=== PATIENT | male | born 1950 | race African-American/Black ===

== ENCOUNTER 2017-08-30 21:28 | Emergency (ER) | payer OTHER ==
[~2017-08-30] VITALS: Ht 167.6 cm; Wt 72.6 kg
[~2017-08-30 21:28] MED LIST: ASA-EC81 MG PO; DIOVAN320 MG; DIOVAN40 MG; HYZAAR 50-12.1 UDTAB; IMODIUM A-D2 MG PO; ISOSORBIDE MONO30 MG PO; LIPITOR40 MG PO; LOTREL 10-20 MG1 CAP; LOTREL 10/20 CA1 CAP; NITROTAB0.3 MG SL; TUSSI PRES-B L120 M1 PO; ZITHROMAX TRI-500 MG PO; ZOFRAN ODT8 MG/UDTAB PO
== END 2017-08-31 09:42 | disposition home or self-care (01) ==
LOC: ER 21:28 → CPU-OBS 21:44 → ER 21:44
DX: R07.89 Other chest pain (principal)

== ENCOUNTER 2018-11-11 08:50 | Emergency (ER) | payer OTHER ==
[~2018-11-11] VITALS: Ht 162.6 cm; Wt 73.9 kg
[2018-11-11] MEDS ORDERED: ASPIR 8181 MG PO (09:21)
[2018-11-11] MEDS ORDERED: CARDURA1 MG PO (09:22)
== END 2018-11-11 13:02 | disposition home or self-care (01) ==
LOC: ER 08:50
DX: B34.9 Viral infection, unspecified (principal); J11.1 Influenza due to unidentified influenza virus with other respiratory manifestations

== ENCOUNTER 2019-11-07 09:56 | Emergency (ER) | payer OTHER ==
[~2019-11-07] VITALS: Ht 162.6 cm; Wt 74.8 kg
[~2019-11-07 09:56] MED LIST changes: +ASPIR 8181 MG PO; +CARDURA1 MG PO
[2019-11-07] MEDS ORDERED: BENICAR20 MG (10:35)
[2019-11-07] MEDS ORDERED: ASPIR 8181 MG (10:36)
[2019-11-07] MEDS ORDERED: MUCINEX DM ER1 EAC1 PO (15:46)
[2019-11-07] MEDS ORDERED: HYDROCODONE-CH115 ML PO (15:46)
== END 2019-11-07 16:07 ==
LOC: ER 09:56
DX: J06.9 Acute upper respiratory infection, unspecified (principal)

== ENCOUNTER 2020-02-03 10:41 | Emergency (ER) | payer OTHER ==
[~2020-02-03] VITALS: Ht 162.6 cm; Wt 72.6 kg
[~2020-02-03 10:41] MED LIST changes: +ASPIR 8181 MG; +BENICAR20 MG; +HYDROCODONE-CH115 ML PO; +MUCINEX DM ER1 EAC1 PO
== END 2020-02-03 13:52 | disposition home or self-care (01) ==
LOC: ER 10:41
DX: L02.213 Cutaneous abscess of chest wall (principal)

== ENCOUNTER 2020-05-28 11:00 | Emergency (ER) | payer OTHER ==
[~2020-05-28] VITALS: Ht 162.6 cm; Wt 74.8 kg
[2020-05-28] MEDS ORDERED: DOXAZOSIN MESYLA2 MG PO (11:11)
[2020-05-28] MEDS ORDERED: IRBESARTAN-HCT1 EACH PO (11:11)
[2020-05-28] MEDS ORDERED: CELEBREX200MG PO (14:03)
== END 2020-05-28 14:17 | disposition home or self-care (01) ==
LOC: ER 11:00
DX: M25.552 Pain in left hip (principal)

== ENCOUNTER 2021-03-06 13:48 | Emergency (ER) | payer OTHER ==
[~2021-03-06] VITALS: Ht 162.6 cm; Wt 77.1 kg
[~2021-03-06 13:48] MED LIST changes: +CELEBREX200MG PO; +DOXAZOSIN MESYLA2 MG PO; +IRBESARTAN-HCT1 EACH PO
[2021-03-06] MEDS ORDERED: CARDURA XL8 MG (14:00)
[2021-03-06] MEDS ORDERED: DULCOLAX STOOL100 M1 PO (17:02)
[2021-03-06] MEDS ORDERED: MIRALAX510 GM PO (17:02)
== END 2021-03-06 17:26 | disposition home or self-care (01) ==
LOC: ER 13:48
DX: K59.09 Other constipation (principal); R10.12 Left upper quadrant pain

== ENCOUNTER 2022-02-08 07:41 | Emergency (ER) | payer OTHER ==
[~2022-02-08] VITALS: Ht 162.6 cm; Wt 71.7 kg
[~2022-02-08 07:41] MED LIST changes: +CARDURA XL8 MG; +DOLOGEN 325-11 EACH PO; +DULCOLAX STOOL100 M1 PO; +MIRALAX510 GM PO
== END 2022-02-08 11:18 | disposition home or self-care (01) ==
LOC: ER 07:41
DX: M25.562 Pain in left knee (principal); Z91.013 Allergy to seafood; M17.12 Unilateral primary osteoarthritis, left knee

== ENCOUNTER 2022-10-21 16:27 | Inpatient (IN) | payer OTHER ==
[~2022-10-21] VITALS: Ht 162.6 cm; Wt 72.6 kg
--- NOTE | 2022-10-21 17:17 | NUR ---
SE RECIBE PTE ALERTA Y ORIENTADO X3 PTE REFEIRE DOLOR EN EL HOMBRO Y SE CORRE PARA LA EL SUZI HACE MAS DE 2 SEMANAS, SE ALBERT VITALES Y SE [place] EN [place] DE [place].
--- NOTE | 2022-10-21 21:09 | NUR ---
PTE ALERTA,ESTABLE Y ORIENTADO.SE EDUCA SOBRE EL TRATAMIENTO QUE RECIBIRA EN EL HOSPITAL Y CLYDE REFIERE ENTENDER.SE LE ALBERT MUESTRAS DE [place] Y SE LE ADMINISTRA MEDICAMENTOS FERNANDO ORDEN MEDICA
== END 2022-10-25 10:42 | disposition designated cancer center or children's hospital (05) | DRG 282 ==
LOC: ER 16:27 → MEDJ 21:36 → SEC-K 10-22 10:32 → O/R 10-22 14:57 → SEC-K 10-22 14:58 → MEDJ 10-22 15:59
PROVIDERS: ADMIT Internal Medicine; ATTEND Internal Medicine
PROC: B246ZZZ Ultrasonography of Right and Left Heart (ICD-10-PCS; principal; 2022-10-21)
PROC: 4A12X4Z Monitoring of Cardiac Electrical Activity, External Approach (ICD-10-PCS; 2022-10-22)
DX: I21.4 Non-ST elevation (NSTEMI) myocardial infarction (principal); I11.0 Hypertensive heart disease with heart failure

== ENCOUNTER 2023-04-19 15:01 | Emergency (ER) | payer OTHER ==
[~2023-04-19] VITALS: Ht 160 cm; Wt 77.1 kg
== END 2023-04-19 22:56 | disposition home or self-care (01) ==
LOC: ER 15:01
DX: K29.70 Gastritis, unspecified, without bleeding (principal)

== ENCOUNTER → 2023-06-10 | Emergency (ER) | payer OTHER ==
[~2023-06-10] VITALS: Ht 162.6 cm; Wt 70.3 kg
== END | disposition left against medical advice (07) ==
LOC: ER 11:19
DX: Z53.21 Procedure and treatment not carried out due to patient leaving prior to being seen by health care provider (principal)

== ENCOUNTER 2024-10-21 09:37 | Inpatient (IN) | payer OTHER ==
[~2024-10-21] VITALS: Ht 162.6 cm; Wt 72.6 kg
--- NOTE | 2024-10-21 10:15 | NUR ---
SE LLAMA A PTE Y NO CONTESTA.
[2024-10-21] MEDS ORDERED: NORVASC10 MG PO (10:24)
--- NOTE | 2024-10-21 10:27 | NUR ---
PTE ALERTA Y ORIENTADA X3, SE ALBERT S/V. PTE REFIERE QUE DESDE LA MANANA DE HOY PRESENTA PRESION ALTERIAL ANDRES. AL MOMENTO DE TRIAGE BP 157/68 Y REFIERE NO TENER DOLOR DE PECHO. PTE INDICA TENER DOLOR DE IAN, SE UBICA EN FT
--- NOTE | 2024-10-21 11:30 | NUR ---
SE ORIENTA A PACIENTE SOBRE TX MEDICO QUIEN INDICA ENTENDER Y ACEPTAR. SE COLECTAN MUESTRAS DE LABORATORIO BAJO MEDIDAS ASEPTICAS, PACIENTE CON XRAY Y CT SCAN PENDIENTE.
[2024-10-21 11:49] LABS: HEMATOCRIT 44.7 % (39.0-48.0); HEMOGLOBIN 14.6 g/dL (13-16.00); MEAN CORPUSCULAR HEMOGLOBIN 26.8 pg (27.00-32.0); MEAN CORPUSCULAR HGB CONC 32.7 g/dl (32.0-36.0); PLATELET COUNT 212 K/uL (150-450); RED BLOOD COUNT 5.45 M/uL (4.00-6.00); RED CELL DISTRIBUTION WIDTH 14.5 % (11.5-14.5)
[2024-10-21] MEDS ORDERED: ASPIRIN 325 MG TABLET PO ONE ×2 (13:00→18:15)
[2024-10-21] MEDS ORDERED: BUTALB/ACETAMINOPHEN/CAFFEINE 1 TAB TABLET PO ONE ×2 (13:11→13:15)
[2024-10-21] MEDS ORDERED: NITROGLYCERIN IN 5 % DEXTROSE 250 ML IV SCH (13:12)
[2024-10-21] MEDS ORDERED: NITROGLYCERIN IN 5 % DEXTROSE 50 MG/250 ML BOTTLE IV ONE (13:35)
--- NOTE | 2024-10-21 13:46 | NUR ---
PACIENTE ADMITIDO A UNIDAD DE CHEST PAIN, SE CONECTA A PACIENTE A MONITOR CARDIACO Y OXIMETRIA DE PULSO CONTINUA, SE REALIZA VENOPUNCION A PACIENTE EN BRAZO MAHAD ANGIO #18 Y BRAZO BEN ANGIO #18 LAS CUALES SE ENCUENTRAN PATENTES LIBRES DE EDEMA Y ERITEMA. SE ALBERT MUESTRAS DE LABORATORIO BAJO MEDIDAS ASEPTICAS Y SE ADMINISTRAN MEDICAMENTOS FERNANDO ORDEN MEDICA. SE COMIENZA DRIP DE TRIDIL A 3ML/HR, SE MANTIENE A PACIENTE EN OBSERVACION POR CAMBIOS A GREGORY CONDICION.
--- NOTE | 2024-10-21 13:52 | NUR ---
PACIENTE PENDIENTE A ENTREGAR U/A Y TROPONINAS X3 COMENZANDO A LAS 1330
[2024-10-21 13:59] LABS: INR 1.02; PARTIAL THROMBOPLASTIN TIME 25.9 SECONDS (22.0-34.0); PROTHROMBIN TIME 11.1 SECONDS (9.0-11.5)
[2024-10-21 14:09] LABS: BILIRUBIN TOTAL 0.4 mg/dL (0.3-1.2); CALCIUM 9.4 mg/dL (8.5-10.1); CREATININE SERUM 0.81 mg/dL (0.70-1.30); GFR 92.65; GLOBULINA 4.1 G/DL (2.4-3.5); POTASSIUM 3.86 mEq/L (3.5-5.1); TOTAL PROTEIN 8.1 gm/dL (6.4-8.2)
--- NOTE | 2024-10-21 15:30 | NUR ---
SE RECIBE PTE ALERTA Y ORIENTADO X3 EN CAMA BAJA CON BARANDAS LEEVADAS Y CABEZAL A 45 AMISH. PTE CONECTADO A MONITOR CARDIACO Y SATUROMETRO. CANALIZADO EN BRAZO DERECHO Y BRAZO BEN CON ANGIO #18 Y #18 PATENTE HAYLEY DE EDEMA Y ENROJECIMIENTO. RECIBIENDO TRIDIL 50MG/250ML BAJANDO A 3MLS/HR. PEDIENTE CONSULTA CON DR. ROSS Y DR. SORTO. PENDIENTE U/A, PTE NO A ORINADO.
[2024-10-21] MEDS ORDERED: 0.9 % SODIUM CHLORIDE 1,000 ML IV SCH (16:15)
--- NOTE | 2024-10-21 16:20 | NUR ---
PTE PRESENTA PULSO EN 45 SE REALIZA EKG Y SE PRESENTA A JAIMIE. FRANCES LA CUAL EVAULYA Y FIRMA EL MISMO E INDICA D/C TRIDIL.
[2024-10-21] MEDS ORDERED: CLOPIDOGREL BISULFATE 75 MG TABLET PO SCH (18:08)
[2024-10-21] MEDS ORDERED: FUROsemide 20 MG/2 ML VIAL IV SCH (18:10)
[2024-10-21] MEDS ORDERED: ACETAMINOPHEN 500 MG GEL..CAP PO PRN (18:15)
[2024-10-21] MEDS ORDERED: ASPIRIN 325 MG TABLET.EC PO ONE (20:10)
[2024-10-21] MEDS ORDERED: FUROsemide 20 MG/2 ML VIAL ONE (20:11)
[2024-10-21] MEDS ORDERED: CLOPIDOGREL BISULFATE 75 MG TABLET PO ONE (20:11)
[2024-10-21 20:48] VITALS: BP 147/67; O2SAT 95
[2024-10-21 21:35] LABS: URINE APPEARANCE Clear; URINE BILIRRUBIN Negative (NEGATIVE); URINE BLOOD Negative; URINE COLOR Yellow; URINE GLUCOSE Negative (NEGATIVE); URINE KETONE Negative (NEGATIVE); URINE LEUKOCYTE Negative; URINE NITRATE Negative; URINE PROTEIN Negative (NEGATIVE); URINE UROBILINOGEN 0.2 E.U./dl
[2024-10-21 21:37] VITALS: BP 123/47; O2SAT 98
[2024-10-21 21:39] LABS: URINE BACTERIA 6.1 uL (0.0-1933)
[2024-10-21 21:42] LABS: URINE EPITHELIAL CELLS 1.2 uL (0.0-38.8); URINE RBC 1.4 uL (0.0-20.8); URINE WBC 1.1 uL (0.0-23.2)
[2024-10-22] VITALS (13 sets, daily range): BP systolic 110–156; BP diastolic 47–77; O2SAT 97–100
[2024-10-22] MEDS ORDERED: NITROGLYCERIN IN 5 % DEXTROSE 250 ML IV SCH (09:00)
[2024-10-22] MEDS ORDERED: ENOXAPARIN SODIUM 40 MG/0.4 ML SYRINGE SUBCUTANEO SCH (09:00)
[2024-10-22] MEDS ORDERED: ATORVASTATIN CALCIUM 40 MG TABLET PO SCH (09:00)
[2024-10-22] MEDS ORDERED: FAMOTIDINE/PF 20 MG in 0.9 % SODIUM CHLORIDE 8 ML IV PUSH SCH (09:00)
[2024-10-22 13:28] LABS: CKMB 4.8 NG/ML (0.5-3.6)
[2024-10-23] VITALS: BP 151/61; O2SAT 99
[2024-10-23 02:52] VITALS: BP 146/79; O2SAT 100
[2024-10-23 04:00] VITALS: BP 156/68; O2SAT 100
[2024-10-23 08:05] VITALS: BP 152/65; O2SAT 100
[2024-10-23 08:17] LABS: ALBUMIN 3.6 gm/dL (3.4-5.0); BILIRUBIN TOTAL 0.72 mg/dL (0.3-1.2); CALCIUM 8.9 mg/dL (8.5-10.1); CREATININE SERUM 0.72 mg/dL (0.70-1.30); GFR 106.14; GLOBULINA 3.3 G/DL (2.4-3.5); MAGNESIUM 2.2 mg/dL (1.8-2.4); POTASSIUM 4.03 mEq/L (3.5-5.1); TOTAL PROTEIN 6.9 gm/dL (6.4-8.2)
[2024-10-23 08:24] LABS: HEMATOCRIT 41.8 % (39.0-48.0); HEMOGLOBIN 14.5 g/dL (13-16.00); MEAN CORPUSCULAR HEMOGLOBIN 27.4 pg (27.00-32.0); MEAN CORPUSCULAR HGB CONC 34.7 g/dl (32.0-36.0); PLATELET COUNT 191 K/uL (150-450); RED BLOOD COUNT 5.29 M/uL (4.00-6.00); RED CELL DISTRIBUTION WIDTH 14.6 % (11.5-14.5)
[2024-10-23] MEDS ORDERED: AMLODIPINE BESYLATE 5 MG TABLET PO SCH (09:00)
[2024-10-23] MEDS ORDERED: LOSARTAN POTASS50 MG PO (13:27)
== END 2024-10-23 14:00 | disposition home or self-care (01) | DRG 281 ==
LOC: ER 09:40 → ICU-2 19:12 → ICU 10-23 02:27
PROVIDERS: General Practice; ADMIT Internal Medicine; ATTEND Internal Medicine
PROC: BW28ZZZ Computerized Tomography (CT Scan) of Head (ICD-10-PCS; principal; 2024-10-21)
PROC: B24BZZZ Ultrasonography of Heart with Aorta (ICD-10-PCS; 2024-10-21)
DX: I21.4 Non-ST elevation (NSTEMI) myocardial infarction (principal); I16.9 Hypertensive crisis, unspecified; E78.5 Hyperlipidemia, unspecified; I11.0 Hypertensive heart disease with heart failure; I50.9 Heart failure, unspecified

== ENCOUNTER → 2025-01-16 | Emergency (ER) | payer OTHER ==
[~2025-01-16] VITALS: Ht 162.6 cm; Wt 72.6 kg
[~2025-01-16] MED LIST changes: +ACETAMINOPHEN 500 MG GEL..CAP PO ONE; +GUAIFENESIN 200 MG/10 ML BLIST.PACK PO ONE; +IPRATROPIUM BROMIDE 0.5 MG/2.5 ML AMPUL.NEB IH SCH; +LOSARTAN POTASS50 MG PO; +NORVASC10 MG PO
[2025-01-16 09:27] LABS: BASO % 0.4 % (0.1-1.2); EOS # 0.08 (0.04-0.54); EOS % 1.7 % (0.7-7.0); HEMATOCRIT 43.3 % (40.1-51.0); HEMOGLOBIN 14.3 g/dL (13.7-17.5); LYMPH # 1.05 (1.18-3.74); LYMPH % 22.3 % (19.3-53.1); MONO # 0.88 (0.24-0.82); NEUT # 2.67 (1.56-6.13); NEUT % 56.7 % (34.0-71.1); PLATELET COUNT 171 K/uL (163-369); RED BLOOD COUNT 5.29 M/uL (4.63-6.08); RED CELL DISTRIBUTION WIDTH 14.4 % (11.6-14.4)
[2025-01-16 09:29] LABS: MONO % 18.7 % (4.7-12.5)
[2025-01-16 09:43] LABS: COVID-19 AG NEGATIVE (NEGATIVE); INFLUENZA A AG NEGATIVE (NEGATIVE)
== END | disposition home or self-care (01) ==
LOC: ER 07:37
PROVIDERS: General Practice
DX: B34.9 Viral infection, unspecified (principal); J10.1 Influenza due to other identified influenza virus with other respiratory manifestations; R05.9 Cough, unspecified; Z20.822 Contact with and (suspected) exposure to COVID-19; I10 Essential (primary) hypertension

== ENCOUNTER 2025-06-28 09:45 | Inpatient (IN) | payer OTHER ==
[~2025-06-28] VITALS: Ht 167.6 cm; Wt 72.6 kg
[~2025-06-28 09:45] MED LIST changes: -ACETAMINOPHEN 500 MG GEL..CAP PO ONE; -GUAIFENESIN 200 MG/10 ML BLIST.PACK PO ONE; -IPRATROPIUM BROMIDE 0.5 MG/2.5 ML AMPUL.NEB IH SCH
[2025-06-28] MEDS ORDERED: CARDURA8 MG PO (10:23)
--- NOTE | 2025-06-28 10:27 | NUR ---
PTE LLEGA POR HBP Y DOLOR DE PECHO QUE AL MOMENTO REFIERE QUE NO TIENE . SE LE ANN S/V Y PRECION MANUAL , SE LE REALIZA EKG Y SE LE PRESENTA A EL DR SMITH BERRIOS LA CUAL ORDENA A PASARLO A EL DEPT DE CRITICO CON MONITOR PARA OBSERVARLO.
[2025-06-28] MEDS ORDERED: ENOXAPARIN SODIUM 60 MG/0.6 ML SYRINGE SUBCUTANEO ONE (10:45)
[2025-06-28] MEDS ORDERED: TICAGRELOR 90 MG TABLET PO ONE (10:45)
[2025-06-28] MEDS ORDERED: ASPIRIN 325 MG TABLET.EC PO ONE (10:45)
[2025-06-28] MEDS ORDERED: NITROGLYCERIN 0.4 MG TAB.SUBL SL ONE (10:45)
[2025-06-28] MEDS ORDERED: ATORVASTATIN CALCIUM 40 MG TABLET PO ONE (10:45)
[2025-06-28] MEDS ORDERED: 0.9 % SODIUM CHLORIDE 1,000 ML IV SCH (10:45)
[2025-06-28 11:24] LABS: BASO % 0.6 % (0.1-1.2); EOS # 0.07 (0.04-0.54); EOS % 1.5 % (0.7-7.0); LYMPH # 1.11 (1.18-3.74); LYMPH % 24.0 % (19.3-53.1); MEAN PLATELET VOLUME 9.10 fl (9.4-12.4); MONO # 0.65 (0.24-0.82); NEUT # 2.76 (1.56-6.13); NEUT % 59.7 % (34.0-71.1); RED CELL DISTRIBUTION WIDTH 13.7 % (11.6-14.4)
[2025-06-28 11:25] LABS: MONO % 14.0 % (4.7-12.5)
--- NOTE | 2025-06-28 11:35 | NUR ---
SE RECIBE A PACIENTE ALERTA Y ORIENTADO X3 EN AREA DE CRITICO, SE CONECTA A MONITOR CARDIACO Y OXIMETRIA CONTINUA. SE EDUCA A PACIENTE SOBRE PROCESO DE ANN DE MUESTRAS, CANALIZACION Y ADMINISTRACION DE MEDICAMENTOS, REFIERE ENTENDER. SE EJECUTAN ORDENES BAJO MEDIDAS ASEPTICAS. SE HACE ENTREGA DE ENVASE PARA ANN DE U/A. PACIENTE SE MANTIENE EN CAMA A NIVEL DE PISO JUNTO CON BARRANDAS ELEVADAS, SE OBSERVAN POR CAMBIOS SIGNIFICATIVOS EN CONDICION.
[2025-06-28 11:46] LABS: INR 1.06
[2025-06-28 12:04] LABS: ALT/SGPT 41.0 U/L (12-78); AST/SGOT 28.0 U/L (15-37); BILIRUBIN TOTAL 0.59 mg/dL (0.3-1.2); BUN CREA RATIO 15.0 (7.0-25.0); CREATININE SERUM 0.82 mg/dL (0.70-1.30); GFR 91.1; GLOBULINA 3.4 G/DL (2.4-3.5); GLUCOSE FASTING 128.0 mg/dL (65-100); OSMOLALITY SERUM 281.0 MOSM/KG (275-295)
[2025-06-28] MEDS ORDERED: NITROGLYCERIN IN 5 % DEXTROSE 50 MG/250 ML BOTTLE IV ONE (12:39)
[2025-06-28] MEDS ORDERED: NITROGLYCERIN IN 5 % DEXTROSE 250 ML IV SCH ×2 (12:45→15:30)
[2025-06-28] MEDS ORDERED: ENALAPRILAT DIHYDRATE 1.25 MG/ML VIAL IV PRN (14:00)
[2025-06-28 16:43] LABS: URINE APPEARANCE Clear; URINE BILIRRUBIN Negative (NEGATIVE); URINE BLOOD Negative; URINE COLOR Yellow; URINE GLUCOSE Negative (NEGATIVE); URINE KETONE Negative (NEGATIVE); URINE LEUKOCYTE Negative; URINE NITRATE Negative; URINE PROTEIN Negative (NEGATIVE); URINE UROBILINOGEN 0.2 E.U./dl
[2025-06-28 16:48] LABS: URINE CAST 1.46 uL (0.0-1.40); URINE EPITHELIAL CELLS 1.8 uL (0.0-38.8); URINE RBC 4.9 uL (0.0-20.8)
[2025-06-28 16:52] LABS: URINE BACTERIA 2.3 uL (0.0-1933); URINE WBC 1.6 uL (0.0-23.2)
[2025-06-28 17:04] VITALS: BP 120/62; O2SAT 97
[2025-06-28 19:15] VITALS: BP 128/66; O2SAT 97
[2025-06-28 20:53] VITALS: O2SAT 96
[2025-06-28 23:14] VITALS: BP 130/70; O2SAT 97
[2025-06-29] VITALS (9 sets, daily range): BP systolic 122–148; BP diastolic 66–77; O2SAT 90–97
[2025-06-29] MEDS ORDERED: PANTOPRAZOLE SODIUM 40 MG TABLET.DR PO SCH (07:30)
[2025-06-29] MEDS ORDERED: ENOXAPARIN SODIUM 40 MG/0.4 ML SYRINGE SUBCUTANEO SCH (09:00)
[2025-06-29] MEDS ORDERED: AMLODIPINE BESYLATE 10 MG TABLET PO SCH (09:00)
[2025-06-29] MEDS ORDERED: DOXAZOSIN MESYLATE 8 MG TABLET PO SCH (09:00)
[2025-06-29] MEDS ORDERED: ASPIRIN 81 MG TABLET.EC PO SCH (09:00)
[2025-06-29] MEDS ORDERED: LOSARTAN POTASSIUM 100 MG TABLET PO SCH (09:00)
[2025-06-29] MEDS ORDERED: ATORVASTATIN CALCIUM 20 MG TABLET PO SCH (09:00)
[2025-06-30] VITALS: O2SAT 96
[2025-06-30 02:01] VITALS: BP 148/70; O2SAT 98
[2025-06-30 04:59] VITALS: O2SAT 96
[2025-06-30 08:44] VITALS: BP 165/71; O2SAT 97
[2025-06-30] MEDS ORDERED: HYDROCHLOROTHIAZIDE 12.5 MG CAPSULE PO SCH (09:00)
[2025-06-30 09:04] VITALS: O2SAT 94
[2025-06-30 13:20] VITALS: O2SAT 90
[2025-06-30] MEDS ORDERED: LOSARTAN POTAS100 MG PO (15:41)
[2025-06-30] MEDS ORDERED: DOXAZOSIN MESYLA8 MG PO (15:41)
[2025-06-30] MEDS ORDERED: LIPITOR20 MG PO (15:41)
[2025-06-30] MEDS ORDERED: AMLODIPINE BESY10 MG PO (15:41)
[2025-06-30] MEDS ORDERED: ST. JOSEPH ASPI81 M2 PO (15:42)
[2025-06-30] MEDS ORDERED: HYDROCHLOROTH12.5 MG PO (15:42)
[2025-06-30] MEDS ORDERED: NITROSTAT0.4 MG SL (15:42)
== END 2025-06-30 15:45 | disposition home or self-care (01) | DRG 282 ==
LOC: ER 09:45 → MEDI 14:29 → SEC-K 14:29 → MEDI 16:10
PROVIDERS: General Practice; ADMIT Internal Medicine; ATTEND Internal Medicine
PROC: B246ZZZ Ultrasonography of Right and Left Heart (ICD-10-PCS; principal; 2025-06-28)
PROC: 4A12X4Z Monitoring of Cardiac Electrical Activity, External Approach (ICD-10-PCS; 2025-06-28)
DX: I21.4 Non-ST elevation (NSTEMI) myocardial infarction (principal); I11.9 Hypertensive heart disease without heart failure; I24.9 Acute ischemic heart disease, unspecified